=== PATIENT | male | born 1965 | race Caucasian/White ===

== ENCOUNTER 2016-10-09 07:09 | Emergency (ER) | payer BC ==
--- NOTE | 2016-10-09 07:44 | UC ---
Respiratory Complaint HPI - HPI Summary HPI Summary: PT HAS HAD 1 WEEK OF URI SX - COUGH, CONGESTION, ST, SINUS PRESSURE. HAD FEVER INITITALLY BUT NOT FOR SEVERAL DAYS. FEELS HE IS IMPROVING BUT LAST NIGHT HAD POST-TUSSIVE EMESIS X 2 SO CAME IN FOR EVAL. OF NOTE PT HAS NOT TAKEN HIS BP MEDS FOR AT LEAST 4 DAYS. 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 - History of Current Complaint Chief Complaint: UCGeneralIllness Stated Complaint: VOMITING COUGH Time Seen by Provider: 10/09/16 07:21 Hx Obtained From: Patient Onset/Duration: Gradual Onset, Lasting Days, Still Present - BUT BETTER Severity Initially: Moderate Severity Currently: Moderate Pain Intensity: 0 Pain Scale Used: 0-10 Numeric Character: Cough: Nonproductive Aggravating Factors: Nothing Alleviating Factors: Spontaneous Resolution Associated Signs And Symptoms: Positive: Fever, URI, Nasal Congestion, Sinus Discomfort. Negative: Dyspnea, Chills, Pleuritic Chest Pain, Wheezing, Hemoptysis, Dizziness, Calf Pain, Calf Swelling, Hoarseness - Allergies/Home Medications Allergies/Adverse Reactions: Allergies Allergy/AdvReac Type Severity Reaction Status Date / Time Acetaminophen [From Vicodin] Allergy Unknown Verified 02/02/14 13:34 Reaction Details Hydrocodone [From Vicodin] Allergy Unknown Verified 02/02/14 13:34 Reaction Details Home Medications: Home Medications Losartan Potassium 10/09/16 [History] PMH/Surg Hx/FS Hx/Imm Hx Cardiovascular History Of: Reports: Cardiac Disorders - valve replaced, Hypertension - Surgical History Surgical History: Yes Surgery Procedure, Year, and Place: aortic valve replacement 2008 - Family History Known Family History: Positive: Hypertension - Social History Alcohol Use: Weekly Alcohol Amount: 4-5 glasses Substance Use Type: None Smoking Status (MU): Never Smoked Tobacco Review of Systems Constitutional: Fever ENT: Sore Throat, Nasal Discharge Respiratory: Cough Cardiovascular: Negative Gastrointestinal: Vomiting All Other Systems Reviewed And Are Negative: Yes Physical Exam Triage Information Reviewed: Yes Appearance: Well-Appearing, No Pain Distress, Well-Nourished Vital Signs: Initial Vital Signs Temp 99.1 F 10/09/16 07:18 Pulse 65 10/09/16 07:18 Resp 16 10/09/16 07:18 BP 181/110 10/09/16 07:18 Pulse Ox 98 10/09/16 07:18 Vital Signs Reviewed: Yes Eyes: Positive: Conjunctiva Clear ENT: Positive: Hearing grossly normal, Pharynx normal, TMs normal Neck: Positive: Supple, Nontender, No Lymphadenopathy Respiratory Exam: Normal Cardiovascular: Positive: RRR, Pulses Normal Abdomen Description: Positive: Nontender, Soft. Negative: CVA Tenderness (R), CVA Tenderness (L), Distended, Guarding Bowel Sounds: Positive: Present Musculoskeletal: Positive: No Edema Neurological: Positive: Alert Psychological: Positive: Age Appropriate Behavior Skin: Negative: rashes UC Diagnostic Evaluation - Laboratory O2 Sat by Pulse Oximetry: 98 Respiratory Course/Dx - Differential Dx/Diagnosis Provider Diagnoses: 1. ACUTE URI. 2. POST TUSSIVE EMESIS Discharge - Discharge Plan Condition: Stable Disposition: HOME Patient Education Materials: Upper Respiratory Infection (ED) Forms: *Work Release Referrals: Jerrell Collins MD [Medical Doctor] - 1 Week () Additional Instructions: YOUR SYMPTOMS SHOULD CONTINUE TO IMPROVE. VOMITING WAS LIKELY A RESULT OF EXCESSIVE COUGHING. OTC COUGH MEDS, HYDRATE, COUGH DROPS. SEEK FOLLOW-UP IF YOU ARE NOT CONTINUING TO IMPROVE EXPECTED. TRY OTC AFRIN FOR NASAL CONGESTION. OKAY TO USE 2-3 SPRAYS IN EACH NOSTRIL UP TO 2 TIMES DAILY. DO NOT USE FOR MORE THAN 3-4 CONSECUTIVE DAYS TO PREVENT DEVELOPING REBOUND CONGESTION. FOLLOW-UP WITH YOUR PCP WITHIN 4- 7 DAYS IF YOUR BP DOES NOT RETURN TO NORMAL YOUR ILLNESS RESOLVES AND WITH YOU TAKING YOUR MEDS RELIABLY.
[2016-10-09 07:57] VITALS: BP 163/114
== END 2016-10-09 08:00 | disposition home or self-care (01) ==
LOC: UCEAST 07:09
DX: J06.9 Acute upper respiratory infection, unspecified (principal); R11.10 Vomiting, unspecified; I10 Essential (primary) hypertension; Z95.2 Presence of prosthetic heart valve; Z88.6 Allergy status to analgesic agent; Z88.5 Allergy status to narcotic agent
CPT/HCPCS: 99211; G0463

== ENCOUNTER 2019-04-21 08:51 | Emergency (ER) | payer BC, OTHER ==
[2019-04-21 09:02] VITALS: BP 00/00
[2019-04-21] MEDS ORDERED: Ibuprofen TAB* 600 MG PO ONE (09:19)
--- NOTE | 2019-04-21 09:24 | UC ---
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 Painful to move, rom is limited d/t pain / swelling. No p/d. No other injury. - History of Current Complaint Chief Complaint: UCUpperExtremity Stated Complaint: FINGER INJURY Time Seen by Provider: 04/21/19 09:12 Hx Obtained From: Patient Pain Intensity: 8 - Allergies/Home Medications Allergies/Adverse Reactions: Allergies Allergy/AdvReac Type Severity Reaction Status Date / Time acetaminophen [From Vicodin] Allergy Hives Verified 04/21/19 09:03 hydrocodone [From Vicodin] Allergy Hives Verified 04/21/19 09:03 morphine Allergy Hives Verified 04/21/19 09:03 PMH/Surg Hx/FS Hx/Imm Hx Previously Healthy: Yes - Surgical History Surgical History: Yes Surgery Procedure, Year, and Place: aortic valve replacement 2008 - Family History Known Family History: Positive: Hypertension - Social History Alcohol Use: Weekly Alcohol Amount: 4-5 glasses Substance Use Type: None Smoking Status (MU): Never Smoked Tobacco Review of Systems All Other Systems Reviewed And Are Negative: Yes Constitutional: Positive: Negative Skin: Positive: Other - see hpi Eyes: Positive: Negative ENT: Positive: Negative Respiratory: Positive: Negative Cardiovascular: Positive: Negative Gastrointestinal: Positive: Negative Genitourinary: Positive: Negative Motor: Positive: Other - see hpi Neurovascular: Positive: Other Musculoskeletal: Positive: Other: - see hpi Neurological: Positive: Negative Psychological: Positive: Negative Is Patient Immunocompromised?: No Physical Exam Triage Information Reviewed: Yes Appearance: Well-Appearing, Well-Nourished Vital Signs: Initial Vital Signs Temp 98.3 F 04/21/19 08:58 Pulse 81 04/21/19 08:58 Resp 18 04/21/19 08:58 BP 00/00 04/21/19 08:58 Pulse Ox 97 04/21/19 08:58 Vital Signs Reviewed: Yes Eye Exam: Normal ENT Exam: Normal Neck exam: Normal - no c/o Respiratory Exam: Normal Cardiovascular Exam: Normal Abdominal Exam: Normal - sitting up, no c/o's Musculoskeletal Exam: Other - Tender L finger 5th. + deformity, unable to straighten / bend. MC nontender. Neurological Exam: Other - distal sens LT present L 5th finger cap refill is good Psychological Exam: Normal - nad Skin Exam: Other - [place] [facility] [place]ity Course/Dx - Course Course Of Treatment: Xray 5th finger - reviewed report with pt. + sublux noted no fx no asia dislocation. Given discrepancy in physical findings (completely immobile), vs xray findings ( ie - suspicious for further injury not noted on xray), will refer to Orthopedics. I called the office, Dr. Ibarra kindly will see Mr. Porter this morning at 10: 45. D/w Mr. Porter, he expresses understanding and agreement. Unable to splint d/t sign finger deformity. He will elevate, splint if / as indicated at orthopedic office. Questions as posed answered to the best of my ability. - Differential Dx/Diagnosis Provider Diagnosis: Finger sprain, Finger deformity Discharge ED - Sign-Out/Discharge Documenting (check all that apply): Patient Departure All imaging exams completed and their final reports reviewed: Yes - Discharge Plan Condition: Stable Disposition: HOME Patient Education Materials: Finger Sprain (ED) Referrals: Billy Parsons MD [Primary Care Provider] - Kip Ibarra MD [Medical Doctor] - Additional Instructions: Please see Dr. Ibarra (orthopedics) appointment is 10:45 am today. Call or arrive early to confirm appointment. Keep finger still, elevate as possible. - Billing Disposition and Condition Condition: STABLE Disposition: Home
== END 2019-04-21 09:57 | disposition home or self-care (01) ==
LOC: UCEAST 08:51
DX: S63.617A Unspecified sprain of left little finger, initial encounter (principal); Z88.8 Allergy status to other drugs, medicaments and biological substances; Z88.5 Allergy status to narcotic agent; W23.0XXA Caught, crushed, jammed, or pinched between moving objects, initial encounter; Y92.9 Unspecified place or not applicable; Y99.0 Civilian activity done for income or pay
CPT/HCPCS: 73140; 99212; A9270-GY; G0463